=== PATIENT | female | born 1975 | race Caucasian/White ===

== ENCOUNTER 2019-12-22 05:16 | Emergency (ER) | payer BC ==
[~2019-12-22] VITALS: Ht 154.9 cm; Wt 65.9 kg
[2019-12-22 05:26] VITALS: Ht 154.9 cm; Wt 65.9 kg
[2019-12-22] MEDS ORDERED: NYSTATIN100000 UN4 PO (05:27)
[2019-12-22] MEDS ORDERED: METHOTREXATE2.5 MG (05:28)
[2019-12-22] MEDS ORDERED: TOPAMAX50 MG PO (05:28)
[2019-12-22] MEDS ORDERED: HUMIRA (05:29)
[2019-12-22] MEDS ORDERED: FOLIC ACID1 MG PO (05:29)
[2019-12-22] MEDS ORDERED: PREDNISONE5 MG PO (05:30)
[2019-12-22] MEDS ORDERED: MAGNESIUM OXID250 MG PO (05:30)
[2019-12-22] MEDS ORDERED: ULTRAM50 MG PO (05:30)
[2019-12-22 06:20] LABS: BASOPHILS 0.1 % (0-2); EOSINOPHILS 2.8 % (0-7); HEMATOCRIT 35.9 % (36.0-48.0); IMMATURE GRANULOCYTES 0.1 % (0-5); LYMPHOCYTES 33.1 % (15-50); MCH 30.3 pg (26.0-34.0); MCHC 33.4 g/dL (31.0-37.0); MCV 90.7 fL (80.0-100.0); MEAN PLATELET VOLUME 8.9 fL (7.4-10.4); MONOCYTES 11.7 % (2-11); NEUTROPHILS 52.2 % (40-80); PLATELET COUNT 382 10x3/uL (130-400); RBC 3.96 10x6/uL (4.00-5.40); RDW 12.6 % (11.5-14.5); WBC 7.4 10x3/uL (4.8-10.8)
[2019-12-22 06:35] LABS: ANION GAP 9.9 mmol/L (8-16); CALCIUM 8.1 mg/dL (8.5-10.1); CARBON DIOXIDE 27.3 mmol/L (21.0-32.0); POTASSIUM - SERUM 3.2 mmol/L (3.5-5.1)
[2019-12-22 06:41] LABS: ALBUMIN 3.1 g/dL (3.4-5.0); BILIRUBIN - TOTAL 0.31 mg/dL (0.2-1.3); PROTEIN - SERUM 6.7 g/dL (6.4-8.2)
[2019-12-22] MEDS ORDERED: DIFLUCAN100 MG PO (07:01)
[2019-12-22 07:53] VITALS: BP 138/96
== END 2019-12-22 07:56 | disposition home or self-care (01) ==
LOC: D.ER 05:16
PROVIDERS: Family Medicine
DX: B37.81 Candidal esophagitis (principal); B37.0 Candidal stomatitis; R07.0 Pain in throat